=== PATIENT | female | born 1965 | race Hispanic/Latino ===

== ENCOUNTER 2017-01-09 15:00 | Emergency (ER) | payer SELFPAY ==
[2017-01-09 16:03] LABS: Basophils % (Auto) 0.5 % (0.0-1.8); Eosinophils % (Auto) 1.5 % (0.0-4.3); Hematocrit 26.6 % (30.3-42.9); Hemoglobin 8.8 gm/dl (10.1-14.3); Mean Corpuscular HGB Conc 33 % (30-34); Mean Corpuscular Hemoglobin 26 pg (28-32); Mean Corpuscular Volume 80 fl (79-97); Platelet Count 517 K/mm3 (140-440); Red Blood Count 3.35 M/mm3 (3.65-5.03); Red Cell Distribution Width 13.7 % (13.2-15.2); White Blood Count 6.7 K/mm3 (4.5-11.0)
[2017-01-09 16:06] LABS: Alanine Aminotransferase 10 units/L (7-56); Albumin 3.2 g/dL (3.9-5); Albumin/Globulin Ratio 0.8 %; Alkaline Phosphatase 99 units/L (35-129); BUN/Creatinine Ratio 23; Blood Urea Nitrogen 9 mg/dL (7-17); Calcium 9.2 mg/dL (8.4-10.2); Carbon Dioxide 24 mmol/L (22-30); Glucose 99 mg/dL (65-100); Lipase 12 units/L (13-60)
[2017-01-09 16:07] LABS: Anion Gap 20 mmol/L; Chloride 101.3 mmol/L (98-107); Potassium 4.1 mmol/L (3.6-5.0); Sodium 141 mmol/L (137-145)
[2017-01-09 17:10] LABS: Bilirubin,Urine NEG (Negative); Blood,Urine NEG (Negative); Ketones,Urine NEG (Negative); Leukocyte Esterase,Urine SM (Negative); Mucus,Urine 3+ /HPF; Nitrite,Urine NEG (Negative); Protein,Urine <15 mg/dL mg/dL (Negative)
--- NOTE | 2017-01-10 00:41 | Emergency Department Report ---
HPI - General Chief Complaint: Pain General Time Seen by Provider: 01/10/17 00:24 - HPI HPI: Room 16 The patient is a 51-year-old female presenting with multiple complaints including arthralgia. The patient states 6 weeks ago she fell out of her bed injuring her right shoulder and right wrist right thigh and right ankle. The patient states she did not go to the hospital immediately and her symptoms began to improve. The patient states that she continued to work and clean she believes she reinjured herself. The patient states she had x-rays performed in [place] and there was no evidence of fractures. The patient states she was told she may have injured her tendons. The patient states she also states has swelling in the joints of both hands with numbness of the fingertips. Patient denies nausea vomiting or diarrhea Location: [See above] Duration: 6 weeks Quality: Pain Severity: Moderate Modifying factors: [see above] Context: [see above] Mode of transportation: Unknown ED Past Medical Hx - Past Medical History Previous Medical History?: Yes Hx Psychiatric Treatment: Yes (depression) Additional medical history: IBS, MVP - Surgical History Past Surgical History?: Yes Additional Surgical History: ectopic - Family History Family history: no significant - Social History Smoking Status: Never Smoker Substance Use Type: None - Medications Home Medications: Home Medications Medication Instructions Recorded Confirmed Last Taken Type Lisinopril 5 mg PO DAILY 03/14/15 03/14/15 03/14/15 History Magnesium Hydroxide [Milk of 400 mg PO QHS #1 bottle 03/14/15 Unknown Rx Magnesia] Nitrofurantoin [place]/M-Cryst 100 mg PO Q12HR #14 capsule 03/14/15 Unknown Rx [Macrobid CAP] Ibuprofen [Motrin 800 MG tab] 800 mg PO Q8HR PRN #20 tablet 01/10/17 Unknown Rx Metaxalone [Skelaxin] 800 mg PO TID #10 tablet 01/10/17 Unknown Rx traMADol [Ultram] 50 mg PO Q6HR PRN #14 tablet 01/10/17 Unknown Rx ED Review of Systems ROS: Stated complaint: DIZZY, LIGHT HEADED Other details as noted in HPI Comment: All other systems reviewed and negative Constitutional: denies: chills, fever Eyes: denies: eye pain, eye discharge, vision change ENT: denies: ear pain, throat pain Respiratory: denies: cough, shortness of breath, wheezing Cardiovascular: denies: chest pain, palpitations Endocrine: no symptoms reported Gastrointestinal: denies: abdominal pain, nausea, diarrhea Genitourinary: denies: urgency, dysuria, discharge Musculoskeletal: arthralgia, myalgia Skin: denies: rash, lesions Neurological: paresthesias (fingertips) Psychiatric: denies: anxiety, depression Hematological/Lymphatic: denies: easy bleeding, easy bruising Physical Exam - Physical Exam Vital Signs: Vital Signs 01/09/17 01/09/17 15:13 22:00 Temperature 98 F 98.2 F Pulse Rate 95 H 89 Respiratory 16 14 Rate Blood Pressure 124/83 135/76 O2 Sat by Pulse 100 100 Oximetry Physical Exam: GENERAL: The patient is well-developed well-nourished female lying on stretcher not appearing to be in acute distress. [] HEENT: Normocephalic. Atraumatic. Extraocular motions are intact. Patient has moist mucous membranes. NECK: Supple. Trachea midline CHEST/LUNGS: Clear to auscultation. There is no respiratory distress noted. HEART/CARDIOVASCULAR: Regular. There is no tachycardia. There is no gallop rub or murmur. ABDOMEN: Abdomen is soft, nontender. Patient has normal bowel sounds. There is no abdominal distention. SKIN: There is no rash. There is no edema. There is no diaphoresis. NEURO: The patient is awake, alert, and oriented. The patient is cooperative. The patient has no focal neurologic deficits. The patient has normal speech. Cranial nerves II through XII grossly intact, no drift MUSCULOSKELETAL: There is positive Phalen's test. There is no evidence of acute injury. ED Course Vital Signs 01/09/17 01/09/17 15:13 22:00 Temperature 98 F 98.2 F Pulse Rate 95 H 89 Respiratory 16 14 Rate Blood Pressure 124/83 135/76 O2 Sat by Pulse 100 100 Oximetry ED Medical Decision Making - Lab Data Result diagrams: 01/09/17 15:25 01/09/17 15:25 Laboratory Tests 01/09/17 01/09/17 01/09/17 15:25 15:25 16:18 WBC 6.7 RBC 3.35 L Hgb 8.8 L Hct 26.6 L MCV 80 MCH 26 L MCHC 33 RDW 13.7 Plt Count 517 H Lymph % (Auto) 23.7 [place] % (Auto) 12.6 H Eos % (Auto) 1.5 Baso % (Auto) 0.5 Lymph # 1.6 [place] # 0.8 Eos # 0.1 Baso # 0.0 Seg Neutrophils % 61.7 Seg Neutrophils # 4.1 Sodium 141 Potassium 4.1 Chloride 101.3 Carbon Dioxide 24 Anion Gap 20 BUN 9 Creatinine 0.4 L Estimated GFR > 60 BUN/Creatinine Ratio 23 Glucose 99 Calcium 9.2 Total Bilirubin 0.30 AST 14 ALT 10 Alkaline Phosphatase 99 Total Protein 7.0 Albumin 3.2 L Albumin/Globulin Ratio 0.8 Lipase 12 L Urine Color Yellow Urine Turbidity Clear Urine pH 6.0 Ur Specific [place] 1.018 Urine Protein <15 mg/dl Urine Glucose (UA) Neg Urine Ketones Neg Urine Blood Neg Urine Nitrite Neg Urine Bilirubin Neg Urine Urobilinogen 4.0 Ur Leukocyte Esterase Sm Urine WBC (Auto) 2.0 Urine RBC (Auto) 4.0 U Epithel Cells (Auto) 3.0 Calcium Oxalate Crystal 1+ Urine Mucus 3+ - Differential Diagnosis carpal tunnel syndrome, arthralgia, myalgias Critical care attestation.: If time is entered above; I have spent that time in minutes in the direct care of this critically ill patient, excluding procedure time. ED Disposition Clinical Impression: Carpal tunnel syndrome, Arthralgia, Anemia Disposition: TO HOME OR SELFCARE Is pt being admited?: No Does the pt Need Aspirin: No Condition: Stable Instructions: Anemia (ED), Carpal Tunnel Syndrome (ED) Additional Instructions: Return to the emergency department immediately should you develop worsening symptoms, fever, inability to tolerate food or liquid or any other concerns. Prescriptions: Ibuprofen [Motrin 800 MG tab] 800 mg PO Q8HR PRN #20 tablet PRN Reason: Pain Metaxalone [Skelaxin] 800 mg PO TID #10 tablet traMADol [Ultram] 50 mg PO Q6HR PRN #14 tablet PRN Reason: Pain Referrals: LENIN COLVIN MD [Staff Physician] - 3-5 Days (Dr. Colvin is an orthopedic surgeon. Please follow up with him for further evaluation) [facility] [Outside] - [place] (Please follow up at the [facility] to be established as a patient) Time of Disposition: 00:46
[2017-01-10 01:02] VITALS: BP 146/84
[2017-01-10] MEDS ORDERED: ULTRAM PO ONE (01:30)
[2017-01-10] MEDS ORDERED: ULTRAM ONE (01:34)
== END 2017-01-10 01:38 | disposition home or self-care (01) ==
LOC: ED 15:00
DX: G56.01 Carpal tunnel syndrome, right upper limb (principal); D64.9 Anemia, unspecified
CPT/HCPCS: 36415; 80053; 81001; 83690; 85025; 99283

== ENCOUNTER 2018-08-04 14:34 | Outpatient (CLI) | payer BC ==
--- NOTE | 2018-08-04 15:06 | Mammography Report ---
Bilateral mammogram: Compared to 06/23/12. CAD study utilized. Findings: Heterogeneous breast parenchyma bilaterally. New focal asymmetry lower posterior right breast. No microcalcification. Normal axilla. Impression: Focal asymmetry lower right breast. Recommend spot compression and sonographic examination. BI-RADS CATEGORY: 0 = Needs additional imaging evaluation ACR BI-RADS MAMMOGRAPHIC CODES: 0 = Needs additional imaging evaluation; 1 = Negative; 2 = Benign; 3 = Probably benign; 4 = Suspicious; 5 = Malignant; 6 = Known biopsy-proven malignancy COMMENT: 1. Dense breast tissue, i.e., adenosis, fibrocystic changes, etc., may obscure an underlying neoplasm. 2. Approximately 10% of cancers are not detected with mammography. 3. A negative mammography report should not delay biopsy if a clinically suspicious mass is present. COMMENT: Patient follow-up letters are generated in [employer].
== END 2018-08-04 14:35 | disposition home or self-care (01) ==
LOC: SPVWC 14:34
PROVIDERS: ATTEND Family Medicine
DX: Z12.31 Encounter for screening mammogram for malignant neoplasm of breast (principal)
CPT/HCPCS: 77067

== ENCOUNTER 2018-10-09 09:19 | Outpatient (CLI) | payer BC ==
--- NOTE | 2018-10-09 11:19 | Ultrasound Report ---
RIGHT DIGITAL DIAGNOSTIC MAMMOGRAM and RIGHT BREAST ULTRASOUND 10/09/2018 INDICATION: Recalled for an asymmetry. TECHNIQUE: Digital right mammographic imaging was performed. COMPARISON: 08/04/2018 FINDINGS: Breast Density: The breasts are heterogeneously dense, which may obscure small masses. Lateral and spot compression MLO views were performed and demonstrate a less prominent poorly margina isaias density in the inferior breast. Ultrasound Findings: Complete sonographic evlauation of all 4 quadrants and retroareolar region was p erformed. No mass, cyst or shadowing to correlate with the mammographic density. A few small benign cysts at 2:00 3 cm from the nipple and at 10:00 5 cm from the nipple. IMPRESSION: A few benign cysts and no suspicious finding. BI-RADS Category 2: Benign. Recommend routine screening mammography in one year A "normal" or negative report should not discourage follow up or biopsy of a clinically significant f inding. A written summary of these findings will be mailed to the patient. The patient will be entered into a mammography reporting system which will generate a reminder letter for the patient's next appointmen t at the appropriate interval. FURTHER INFORMATION: According to the [employer], yearly mammograms are recommend ed starting at age 40 and continuing as long as a woman is in good health. Breast MRI is recommended for women with an approximately 20-25% or greater lifetime risk of breast cancer, including women wi th a strong family history of breast or ovarian cancer and women who have been treated for Hodgkin's disease. Signer Name: Ariel Mooney MD Signed: 10/09/2018 11:15 AM Workstation Name: [id number]
== END 2018-10-09 09:20 | disposition home or self-care (01) ==
LOC: SPVWC 09:19
PROVIDERS: ATTEND Family Medicine
DX: N60.01 Solitary cyst of right breast (principal)

== ENCOUNTER 2020-12-23 09:39 | Emergency (ER) | payer BC | END 2020-12-23 09:40 | disposition left against medical advice (07) | LOC: ED 09:39 | DX: N20.0 Calculus of kidney (principal); Z53.21 Procedure and treatment not carried out due to patient leaving prior to being seen by health care provider ==

== ENCOUNTER 2021-03-13 10:49 | Outpatient (CLI) | payer BC ==
--- NOTE | 2021-03-14 14:31 | Mammography Report ---
DIGITAL SCREENING MAMMOGRAM WITH CAD, 03/13/2021 CLINICAL INFORMATION / INDICATION: Routine screening TECHNIQUE: Digital bilateral 2D mammography was obtained in the craniocaudal and mediolateral obliqu e projections. This examination was interpreted with the benefit of Computer-Aided Detection analysis . COMPARISON: 08/04/2018 partial set, 06/23/2012 FINDINGS: Breast Density: The breasts are heterogeneously dense, which may obscure small masses. No dominant mass, suspicious calcifications, or architectural distortion in either breast. IMPRESSION: No mammographic evidence of malignancy. Follow up recommendation: Routine yearly BI-RADS Category 1: NEGATIVE A "normal" or negative report should not discourage follow up or biopsy of a clinically significant f inding. A written summary of these findings will be mailed to the patient. The patient will be entered into a mammography reporting system which will generate a reminder letter for the patient's next appointmen t at the appropriate interval. The [employer] recommends yearly mammograms starting at age 40 and continuing as l talisha as a woman is in good health. Breast MRI is recommended for women with an approximate 20-25% or greater lifetime risk of breast cancer, including women with a strong family history of breast or ova juan c cancer or who have been treated for Hodgkin's disease. Signer Name: Jesse Almendarez MD Signed: 03/14/2021 2:26 PM Workstation Name: [id number]
== END 2021-03-13 10:50 | disposition home or self-care (01) ==
LOC: SPVWC 10:49
PROVIDERS: ATTEND Family Medicine
DX: Z12.31 Encounter for screening mammogram for malignant neoplasm of breast (principal)
CPT/HCPCS: 77067